=== PATIENT | female | born 1970 | race African-American/Black ===

== ENCOUNTER → 2020-02-20 | Outpatient (CLI) | payer OTHER ==
--- NOTE | 2020-02-20 17:14 | RAD ---
EXAM: LUMBAR SPINE 2-3V 02/20/2020 12:00 AM CLINICAL INDICATION:Low back pain, no known injury. Disability determination COMPARISON:None TECHNIQUE:AP and lateral views of lumbar spine FINDINGS:There are 5 nonrib-bearing lumbar vertebral bodies. No acute fracture. Alignment is normal. There is mild disc space narrowing with small anterior osteophytes throughout the lumbar spine. No significant facet arthrosis. IMPRESSION:Mild degenerative disc disease. No acute fracture. Electronically signed by: Yesy Anderson MD (02/20/2020 5:11 PM) [id number]
== END | disposition home or self-care (01) ==
LOC: RAD 13:31
PROVIDERS: ATTEND Surgery
DX: M51.36 Other intervertebral disc degeneration, lumbar region (principal); M25.78 Osteophyte, vertebrae
CPT/HCPCS: 72100